=== PATIENT | female | born 1965 | race Native Hawaiian/Other Pacific Islander ===

== ENCOUNTER 2021-05-17 14:48 | Outpatient (CLI) | payer OTHER | END 2021-05-17 19:15 | disposition home or self-care (01) | LOC: MAMMO 14:48 | PROVIDERS: ATTEND Internal Medicine | DX: Z12.31 Encounter for screening mammogram for malignant neoplasm of breast (principal) ==

== ENCOUNTER 2022-05-19 13:06 | Outpatient (CLI) | payer OTHER | END 2022-05-19 20:59 | disposition home or self-care (01) | LOC: MAMMO 13:06 | PROVIDERS: ATTEND Internal Medicine | DX: Z12.31 Encounter for screening mammogram for malignant neoplasm of breast (principal) ==